=== PATIENT | female | born 1995 | race Caucasian/White ===

== ENCOUNTER 2018-05-25 06:15 | Emergency (ER) | payer OTHER ==
[~2018-05-25] VITALS: Ht 149.9 cm; Wt 58.1 kg
[~2018-05-25 06:15] MED LIST: MACROBID 100 M100 M1 PO; PHENERGAN 25 MG25 M1 PO; ZOFRAN ODT4 MG PO
[2018-05-25 06:32] LABS: URINE BILIRUBIN NEGATIVE (Negative); URINE BLOOD NEGATIVE (Negative); URINE CLARITY CLEAR; URINE COLOR YELLOW; URINE GLUCOSE-RANDOM* NEGATIVE (Negative); URINE KETONES NEGATIVE (Negative); URINE LEUKOCYTES-REFLEX NEGATIVE (Negative); URINE NITRITE-REFLEX NEGATIVE (Negative); URINE PROTEIN (DIPSTICK) NEGATIVE (Negative); URINE SPECIFIC GRAVITY >= 1.030 (1.005-1.035); URINE UROBILINOGEN 0.2 E.U./dl (0.2-1.0)
[2018-05-25 07:26] VITALS: BP 119/55
== END 2018-05-25 07:28 | disposition home or self-care (01) ==
LOC: ER 06:15
PROVIDERS: Emergency Medicine
DX: N76.0 Acute vaginitis (principal); Z20.2 Contact with and (suspected) exposure to infections with a predominantly sexual mode of transmission

== ENCOUNTER → 2021-08-22 | Outpatient (CLI) | payer OTHER ==
--- NOTE | 2021-08-24 10:07 | PATH ---
[facility] [address] [place] [address] PATHOLOGY RPT PROCEDURE Name: JANET LEON Room #: REG [facility] M.R.#: [id number] Admission: 08/22/21 Date of : 89 Discharge: Report #: [id number] Path Case #: [id number] [facility] Accession Number: [id number] . 01 Material submitted: . breast - LEFT BREAST MASS. Modifiers: left . 01 Clinical history: . LEFT BREAST MASS US/LT BREAST BIOPSY/LT BREAST LUMP . 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 (JESSICA:[place]; 08/23/2021) MBR 08/23/2021 1552 Local . 02 Comment: There is no evidence of malignancy. (JESSICA:[place]; 08/23/2021) . 02 Electronically signed: . Didier Santos MD, Pathologist NPI- [id number] . 01 Gross description: . The specimen is received in formalin, labeled "Janet Leon, left breast". The source is additionally listed on the requisition as "left breast mass". Received are 2 needle cores of yellow-shin fibrofatty tissue measuring 2.2 x 0.4 x 0.4 cm in aggregate dimensions. The specimen is entirely submitted in cassettes A1-A2. The specimen is collected at 1335 and placed into formalin at 1337 on 08/22/2021. The specimen is removed from formalin at 2140 on 08/22/2021. The total formalin to fixation time is 8 hours and 3 minutes. ([facility]; 08/22/2021) NRI/NRI 08/22/2021 1616 Local . 02 Pathologist provided ICD-10: N60.32, N60.42, N61.0 . 02 CPT . 363733 Specimen Comment: A courtesy copy of this report has been sent to [phone], [phone] Specimen Comment: [phone] Specimen Comment: Report sent to / [place] [address] PATHOLOGY RPT PROCEDURE Name: JANET LEON MARCIA Room #: REG CLI Yojana#: [id number] Admission: 08/22/21 Date of : 89 Discharge: Report #: [id number] Path Case #: [id number] Specimen Comment: A duplicate report has been generated due to demographic updates. Performed at: 01 [facility] [address] [id number] MD Jackson Burks MD Phone: [phone] Performed at: 02 [facility] [address] [place], [place] [id number] MD Didier Santos MD Phone: [phone]
== END | disposition home or self-care (01) ==
LOC: ULTRA 10:17
PROVIDERS: ATTEND Family Medicine
DX: N60.32 Fibrosclerosis of left breast (principal); N60.42 Mammary duct ectasia of left breast; N61.0 Mastitis without abscess

== ENCOUNTER 2021-09-02 17:34 | Inpatient (IN) | payer OTHER ==
[~2021-09-02] VITALS: Ht 149.9 cm; Wt 56.7 kg
[2021-09-02 17:40] VITALS: BP 123/78
[2021-09-03 07:52] VITALS: BP 104/57
--- NOTE | 2021-09-03 10:50 | NUR ---
PATIENTS HEMATOMA RUPTURED AND IS DRAINING. NOTIFIED . WAS TOLD TO APPLY A DRY DRESSING TO SITE AND CHANGE NEEDED. WILL CONTINUE WITH I&D TODAY.
[2021-09-03 15:32] VITALS: BP 108/62
[2021-09-03 19:47] VITALS: BP 93/49
--- NOTE | 2021-09-04 04:48 | NUR ---
PT AMBULATING TO BATHROOM INDEPENDENTLY AND IS TOLERATING WELL. FENTANYL AND LORTAB PROVIDING PAIN RELIEF. RESTING COMFORTABLY. NO NEEDS VOICED. CALL LIGHT WITHIN REACH. FREQUENT OBSERVATION.
[2021-09-04 07:29] VITALS: BP 103/45
[2021-09-04 15:34] VITALS: BP 104/63
[2021-09-04 19:50] VITALS: BP 98/58
[2021-09-05] MEDS ORDERED: NORCO5 PO ×2 (06:48→09:19)
--- NOTE | 2021-09-05 07:26 | NUR ---
Assumed care on 09/04/21 @ 1900, Had a biopsy of the lump on her L Breast, it subsequently got a Hematoma, which ruptured, subsequently I&D preformed. Dressing C/D/I, 20 IV in Right forearm. Pain addressed by ordered pain medications. Continent and uses the toilet up ad aurelia. Scheduled to discharge on . Call light within reach.
[2021-09-05 08:18] VITALS: BP 95/55
--- NOTE | 2021-09-05 09:18 | O ---
[facility] [place] [address] OPERATIVE REPORT Name: JORDON RUDOLPH Room #: 440-P ADM IN M.R.#: [id number] Admission: 09/02/21 Attend Phys: Amos Michael, Discharge: Date of : 89 Report #: [id number] THIS REPORT FOR: cc: Didier Wallis James A. DO Patterson,Amos Barlow MD ~ DATE OF SERVICE: 09/03/2021 PREOPERATIVE DIAGNOSIS: Left breast hematoma. POSTOPERATIVE DIAGNOSIS: Left breast infected hematoma. OPERATION: Incision and drainage of left breast hematoma. SURGEON: Amos Michael MD ANESTHESIA: General. ESTIMATED BLOOD LOSS: Minimal. SPECIMENS: Fluid for culture and sensitivity. DESCRIPTION OF PROCEDURE: After informed consent was obtained, the patient was brought to the operating room and placed supine. SCDs were placed and working, general anesthesia was induced. The left breast was prepped and draped in the usual sterile fashion. I made an elliptical incision in the upper medial quadrant around the areola. Cautery dissection was made down through the subcutaneous tissue and a pocket of turbid fluid was encountered. This was suctioned out and cultured. Loculations were then broken up bluntly with a clamp. I was then able to copiously irrigate the area with normal saline. Hematoma and fluid was suctioned out. I then packed the area with sterile gauze. Sterile dressings were applied. COMPLICATIONS: None. DISPOSITION: The patient was taken to recovery in satisfactory condition. <ELECTRONICALLY SIGNED> By: Amos Michael MD 09/05/21 0918 1302 1513 Amos Michael MD /nt
[2021-09-05 11:06] VITALS: BP 95/55
== END 2021-09-05 11:40 | disposition home or self-care (01) | DRG 585 ==
LOC: ER 17:34 → 4S 18:39 → EROBS 18:39 → 4S 21:46
PROVIDERS: ADMIT Surgery; ATTEND Surgery
PROC: 0H9U0ZZ Drainage of Left Breast, Open Approach (ICD-10-PCS; principal; 2021-09-03)
DX: S20.02XA Contusion of left breast, initial encounter (principal); Z20.822 Contact with and (suspected) exposure to COVID-19; Z28.21 Immunization not carried out because of patient refusal; X58.XXXA Exposure to other specified factors, initial encounter; Y93.89 Activity, other specified; Y92.89 Other specified places as the place of occurrence of the external cause; Y99.8 Other external cause status
CPT/HCPCS: 10102; 50010; 50101; 50386; 50417; 62110; 62900; 70005